=== PATIENT | female | born 1985 | race Caucasian/White ===

== ENCOUNTER 2017-04-06 07:33 | Emergency (ER) | payer MEDICAID ==
[~2017-04-06] VITALS: Ht 160 cm; Wt 61.0 kg
[~2017-04-06 07:33] MED LIST: LISI-170 PO; METO-99 PO; QUET150T PO; QUET200T PO; SERT100T PO
[2017-04-06] MEDS ORDERED: LIDOCAINE 1%, 20ML ONE (07:57)
[2017-04-06] MEDS ORDERED: ACETAMINOPHEN 500 MG TABLET ONE (07:57)
[2017-04-06] MEDS ORDERED: LIDOCAINE 1%, 20ML SQ ONE (08:00)
[2017-04-06] MEDS ORDERED: ACETAMINOPHEN 500 MG TABLET PO ONE (08:00)
[2017-04-06] MEDS ORDERED: ONDANSETRON ODT 4 MG ONE (08:17)
[2017-04-06] MEDS ORDERED: HYDROmorphone 1 MG/ML, 1ML ONE (08:17)
[2017-04-06] MEDS ORDERED: HYDROmorphone 1 MG/ML, 1ML IM ONE (08:30)
[2017-04-06] MEDS ORDERED: ONDANSETRON ODT 4 MG PO ONE (08:30)
[2017-04-06] MEDS ORDERED: CLINDAMYCIN 300 MG CAPSULE PO ONE (09:00)
[2017-04-06] MEDS ORDERED: CLINDAMYCIN 150 MG CAPSULE PO ONE (09:30)
[2017-04-06] MEDS ORDERED: CLINDAMYCIN 300 MG CAPSULE ONE (09:48)
[2017-04-06] MEDS ORDERED: CLINDAMYCIN 150 MG CAPSULE ONE (09:48)
[2017-04-06 09:58] VITALS: BP 114/65
== END 2017-04-06 10:00 | disposition home or self-care (01) ==
LOC: ED 09:35
DX: L03.317 Cellulitis of buttock (principal); L02.31 Cutaneous abscess of buttock
CPT/HCPCS: 10061; 96372; 99284; J1170; J3490; Q0162

== ENCOUNTER 2017-06-01 09:21 | Emergency (ER) | payer MEDICAID ==
[~2017-06-01] VITALS: Ht 160 cm; Wt 65.0 kg
[2017-06-01] MEDS ORDERED: ACETAMINOPHEN 500 MG TABLET ONE (10:35)
[2017-06-01] MEDS ORDERED: LIDOCAINE 1%, 10ML ONE (10:35)
[2017-06-01] MEDS ORDERED: ONDANSETRON ODT 4 MG ONE (10:52)
[2017-06-01] MEDS ORDERED: HYDROmorphone 2 MG/ML, 1ML ONE (10:59)
[2017-06-01] MEDS ORDERED: ONDANSETRON ODT 4 MG PO ONE (11:00)
[2017-06-01] MEDS ORDERED: HYDROmorphone 1 MG/ML, 1ML IM ONE (11:00)
[2017-06-01] MEDS ORDERED: ACETAMINOPHEN 500 MG TABLET PO ONE (11:00)
[2017-06-01] MEDS ORDERED: LIDOCAINE 1%, 20ML SQ ONE (11:00)
[2017-06-01 12:39] VITALS: BP 128/89
== END 2017-06-01 12:42 | disposition home or self-care (01) ==
LOC: ED 12:36
DX: L02.31 Cutaneous abscess of buttock (principal); I10 Essential (primary) hypertension
CPT/HCPCS: 10060; 96372; 99283; J1170; J3490; Q0162

== ENCOUNTER 2017-06-04 07:21 | Emergency (ER) | payer MEDICAID ==
[~2017-06-04] VITALS: Ht 160 cm; Wt 67.7 kg
[2017-06-04 07:22] VITALS: BP 141/92
== END 2017-06-04 08:06 | disposition home or self-care (01) ==
LOC: ED 07:55
DX: L02.31 Cutaneous abscess of buttock (principal); I10 Essential (primary) hypertension
CPT/HCPCS: 99282

== ENCOUNTER 2018-03-05 06:21 | Emergency (ER) | payer MEDICAID ==
[~2018-03-05] VITALS: Ht 160 cm; Wt 64.2 kg
[2018-03-05] MEDS ORDERED: SODIUM CHLORIDE FLUSH 10ML SYR IVF ONE (07:00)
[2018-03-05 07:24] LABS: ALANINE AMINOTRANSFERASE 16 U/L (12-78); ANION GAP 12 mmol/L (5-15); CALCIUM 8.4 mg/dL (8.5-10.1); CHLORIDE 104 mmol/L (98-107); CREATININE 0.89 mg/dL (0.55-1.02)
[2018-03-05 07:28] LABS: ALBUMIN 3.4 g/dL (3.4-5.0); ALKALINE PHOSPHATASE 97 U/L (45-117); BILIRUBIN,TOTAL 0.8 mg/dL (0.2-1.0); TOTAL PROTEIN 8.7 g/dL (6.4-8.2)
[2018-03-05 07:32] LABS: BASOPHILS # (AUTO) 0.05 x10^3/uL (0-0.1); BASOPHILS % (AUTO) 1 % (0-1); EOSINOPHILS # (AUTO) 0.04 x10^3/uL (0-0.4); EOSINOPHILS % (AUTO) 0 % (1-7); LYMPHOCYTES # (AUTO) 1.77 x10^3/uL (1-3.4); LYMPHOCYTES % (AUTO) 18 % (22-44); MD NO; MEAN CORPUSCULAR HEMOGLOBIN 28.2 pg (27.0-34.8); MEAN CORPUSCULAR HGB CONC 33.4 g/dL (32.4-35.8); MEAN CORPUSCULAR VOLUME 84.2 fL (80-100); MEAN PLATELET VOLUME 9.3 fL (7.4-10.4); MONOCYTES # (AUTO) 0.62 x10^3/uL (0.2-0.8); MONOCYTES % (AUTO) 6 % (2-9); NEUTROPHILS # (AUTO) 7.25 x10^3/uL (1.8-6.8); NEUTROPHILS % (AUTO) 75 % (42-75); PLATELET COUNT 266 x10^3/uL (130-400); RED BLOOD COUNT 4.56 x10^6/uL (3.82-5.3); RED CELL DISTRIBUTION WIDTH 14.2 % (9.6-15.2)
[2018-03-05] MEDS ORDERED: HYDROmorphone 2 MG/ML, 1ML ONE (07:58)
[2018-03-05] MEDS ORDERED: VANCOMYCIN PER PHARMACY MC ONE (08:00)
[2018-03-05] MEDS ORDERED: PIPERACILLIN/TAZO/PMX 3.375GM 50 ML IVPB ONE (08:00)
[2018-03-05] MEDS ORDERED: SODIUM CHLORIDE 0.9% 1,000ML IVBOLUS ONE (08:00)
[2018-03-05] MEDS ORDERED: PHARMACOKINETIC CONSULTATION MC ONE (08:00)
[2018-03-05] MEDS ORDERED: HYDROmorphone 1 MG/ML, 1ML IVPush PRN (08:00)
[2018-03-05] MEDS ORDERED: VANCOMYCIN 1,200 MG in SODIUM CHLORIDE 0.9% 250 ML IV ONE (08:30)
[2018-03-05] MEDS ORDERED: PROPOFOL 10 MG/ML, 20ML IVPush ONE (08:30)
[2018-03-05] MEDS ORDERED: PROPOFOL 10 MG/ML, 20ML ONE ×2 (08:53→09:31)
[2018-03-05] MEDS ORDERED: PIPERACILLIN/TAZO/PMX 3.375GM 50 ML ONE (09:59)
[2018-03-05 12:26] VITALS: BP 108/65
== END 2018-03-05 12:30 | disposition home or self-care (01) ==
LOC: ED 12:09
DX: L02.31 Cutaneous abscess of buttock (principal); I10 Essential (primary) hypertension; F41.1 Generalized anxiety disorder
CPT/HCPCS: 10060; 36415; 72193; 80053; 83605; 84703; 85025; 87040; 96365; 96366; 96368; 96375; 99152; 99285; J1170; J2543; J2704; J3370; J7030; J7050

== ENCOUNTER 2018-03-21 06:47 | Emergency (ER) | payer MEDICAID ==
[~2018-03-21] VITALS: Ht 160 cm; Wt 64.0 kg
[2018-03-21] MEDS ORDERED: VANCOMYCIN PER PHARMACY MC ONE (08:00)
[2018-03-21] MEDS ORDERED: PROPOFOL 10 MG/ML, 20ML IVPush ONE (08:30)
[2018-03-21 08:40] LABS: HCG UR SG 1.004 (1.003-1.030)
[2018-03-21] MEDS ORDERED: VANCOMYCIN 1,300 MG in SODIUM CHLORIDE 0.9% 250 ML IV ONE (09:00)
[2018-03-21] MEDS ORDERED: HYDROmorphone 2 MG/ML, 1ML ONE ×2 (09:09→10:11)
[2018-03-21] MEDS ORDERED: PROPOFOL 10 MG/ML, 20ML ONE (09:09)
[2018-03-21 09:12] LABS: BASOPHILS # (AUTO) 0.03 x10^3/uL (0-0.1); BASOPHILS % (AUTO) 0 % (0-1); EOSINOPHILS # (AUTO) 0.08 x10^3/uL (0-0.4); EOSINOPHILS % (AUTO) 1 % (1-7); LYMPHOCYTES # (AUTO) 1.49 x10^3/uL (1-3.4); LYMPHOCYTES % (AUTO) 16 % (22-44); MD NO; MEAN CORPUSCULAR HEMOGLOBIN 28.5 pg (27.0-34.8); MEAN CORPUSCULAR HGB CONC 33.9 g/dL (32.4-35.8); MEAN CORPUSCULAR VOLUME 84.2 fL (80-100); MEAN PLATELET VOLUME 9.5 fL (7.4-10.4); MONOCYTES # (AUTO) 0.65 x10^3/uL (0.2-0.8); MONOCYTES % (AUTO) 7 % (2-9); NEUTROPHILS % (AUTO) 75 % (42-75); PLATELET COUNT 217 x10^3/uL (130-400); RED BLOOD COUNT 4.52 x10^6/uL (3.82-5.3); RED CELL DISTRIBUTION WIDTH 14.6 % (9.6-15.2)
[2018-03-21 09:25] LABS: ALANINE AMINOTRANSFERASE 15 U/L (12-78); ALBUMIN 3.2 g/dL (3.4-5.0); ANION GAP 9 mmol/L (5-15); CALCIUM 8.3 mg/dL (8.5-10.1); CHLORIDE 106 mmol/L (98-107); CREATININE 0.77 mg/dL (0.55-1.02)
[2018-03-21 09:27] LABS: ALKALINE PHOSPHATASE 107 U/L (45-117); BILIRUBIN,TOTAL 0.6 mg/dL (0.2-1.0); TOTAL PROTEIN 8.5 g/dL (6.4-8.2)
[2018-03-21] MEDS ORDERED: LIDOCAINE-MPF 1%, 5ML ONE (09:29)
[2018-03-21] MEDS ORDERED: ETOMIDATE 20 MG/10 ML ONE (09:29)
[2018-03-21] MEDS ORDERED: ETOMIDATE 20 MG/10 ML IVPush ONE ×2 (09:30→10:30)
[2018-03-21] MEDS: HYDROmorphone 1 MG/ML, 1ML IVPush PRN ×2 (09:30→10:15)
[2018-03-21 11:59] VITALS: BP 135/84
[2018-03-21] MEDS ORDERED: BACITRACIN ZINC OINT 500U/GM, 0.9 GM ONE (12:07)
== END 2018-03-21 12:36 | disposition home or self-care (01) ==
LOC: ED 07:21
DX: K13.0 Diseases of lips (principal); L03.116 Cellulitis of left lower limb; F11.10 Opioid abuse, uncomplicated; F15.10 Other stimulant abuse, uncomplicated; F17.210 Nicotine dependence, cigarettes, uncomplicated
CPT/HCPCS: 10060; 36415; 80053; 81025; 85025; 96365; 96366; 96375; 96376; 99152; 99285; J1170; J3370; J7050

== ENCOUNTER 2018-06-22 19:55 | Emergency (ER) | payer MEDICAID ==
[~2018-06-22] VITALS: Ht 160 cm; Wt 64.9 kg
[2018-06-22 20:14] VITALS: BP 138/80
[2018-06-22] MEDS ORDERED: LIDOCAINE-MPF 1%, 5ML INFIL ONE (20:30)
[2018-06-22] MEDS ORDERED: LIDOCAINE-MPF 1%, 5ML ONE (20:44)
--- NOTE | 2018-06-22 20:52 | NUR ---
PATIENT WAS ALL SET UP FOR I&D. PATIENT STATED, "I WANT TO LEAVE. I'LL JUST GO TO [place] THEY GIVE ME A BIG SHOT OF DILAUDID".
--- NOTE | 2018-06-22 20:55 | NUR ---
PATIENT SIGNED [facility].
== END 2018-06-22 20:56 | disposition left against medical advice (07) ==
LOC: ED 20:50
DX: L02.31 Cutaneous abscess of buttock (principal); F41.1 Generalized anxiety disorder; I10 Essential (primary) hypertension; Z72.9 Problem related to lifestyle, unspecified
CPT/HCPCS: 99283

== ENCOUNTER 2019-01-07 05:46 | Emergency (ER) | payer MEDICAID ==
[~2019-01-07] VITALS: Ht 160 cm; Wt 61.0 kg
[2019-01-07 05:49] VITALS: BP 149/86
== END 2019-01-07 06:55 | disposition home or self-care (01) ==
LOC: ED 06:43
DX: L03.114 Cellulitis of left upper limb (principal); L03.116 Cellulitis of left lower limb; L02.416 Cutaneous abscess of left lower limb; L02.414 Cutaneous abscess of left upper limb; F11.10 Opioid abuse, uncomplicated
CPT/HCPCS: 10061; 96372; 99284; S0077; 25605

== ENCOUNTER 2019-01-16 14:46 | Inpatient (IN) | payer MEDICAID ==
[~2019-01-16] VITALS: Ht 160 cm; Wt 73.4 kg
[2019-01-19 06:55] VITALS: BP 145/88
== END 2019-01-19 09:05 | disposition left against medical advice (07) | DRG 602 ==
LOC: ED 15:40 → EDIP 15:41 → OR 15:59 → 4NOR 19:22
PROVIDERS: ADMIT Internal Medicine; ATTEND Internal Medicine
PROC: 0Y9C0ZZ Drainage of Right Upper Leg, Open Approach (ICD-10-PCS; principal; 2019-01-16)
DX: L02.415 Cutaneous abscess of right lower limb (principal); E43 Unspecified severe protein-calorie malnutrition; L02.31 Cutaneous abscess of buttock; F17.213 Nicotine dependence, cigarettes, with withdrawal; L03.115 Cellulitis of right lower limb; Z53.21 Procedure and treatment not carried out due to patient leaving prior to being seen by health care provider; D50.9 Iron deficiency anemia, unspecified; Z68.28 Body mass index [BMI] 28.0-28.9, adult; E87.6 Hypokalemia; F11.10 Opioid abuse, uncomplicated; F15.10 Other stimulant abuse, uncomplicated; F31.9 Bipolar disorder, unspecified; I10 Essential (primary) hypertension; K11.20 Sialoadenitis, unspecified; Z91.19 Patient's noncompliance with other medical treatment and regimen; Z82.49 Family history of ischemic heart disease and other diseases of the circulatory system
CPT/HCPCS: 36415; 80048; 80053; 80202; 82728; 83540; 83550; 83605; 84145; 84466; 85025; 87015; 87040; 87070; 87075; 87102; 87116; 87205; 87206; 96374; G0378; J0690; J1100; J1885; J2250; J2405; J2543; J2704; J3010; J3370; J3480; J0330; J2270; J7050

== ENCOUNTER 2020-02-04 22:09 | Inpatient (IN) | payer MEDICAID ==
[~2020-02-04] VITALS: Ht 160 cm; Wt 74.4 kg
[~2020-02-04 22:09] MED LIST changes: +ACET325T26 PO; +CEFT2FRO2 IV; +HYDR-3237 PO; +IBUP-1221 PO; +METH10TA2 PO; +NICO-486 TD; +POLY17PO5 PO; -QUET150T PO; +QUET150T2 PO
--- NOTE | 2020-02-04 22:45 | NUR ---
Patient presents to ER c/o two abcesses, one to the top of right shoulder and one to the outer lower aspect of right hip. Patient c/o pain with abscesses. Hx of IV drug use. Patient is in NAD. Respirations even and unlabored.
[2020-02-04] MEDS ORDERED: LIDOCAINE-MPF 1%, 5ML INFIL ONE (23:00)
[2020-02-04] MEDS ORDERED: LIDOCAINE-MPF 1%, 5ML ONE ×2 (23:00→23:17)
[2020-02-04] MEDS ORDERED: HYDROmorphone 2 MG/ML, 1ML IM ONE (23:00)
[2020-02-04] MEDS ORDERED: HYDROmorphone 2 MG/ML, 1ML ONE (23:00)
[2020-02-04] MEDS ORDERED: VANCOMYCIN 1,900 MG in SODIUM CHLORIDE 0.9% 250 ML IV ONE (23:45)
[2020-02-05] MEDS ORDERED: CEFTRIAXONE PMX 1GM/50ML 50 ML IV ONE
[2020-02-05] MEDS ORDERED: SODIUM CHLORIDE 0.9% 1,000ML IVBOLUS ONE
[2020-02-05] MEDS ORDERED: CEFTRIAXONE PMX 1GM/50ML 50 ML ONE (00:06)
[2020-02-05 00:28] LABS: BASOPHILS # (AUTO) 0.02 x10^3/uL (0-0.1); BASOPHILS % (AUTO) 0 % (0-1); EOSINOPHILS # (AUTO) 0.13 x10^3/uL (0-0.4); EOSINOPHILS % (AUTO) 2 % (1-7); LYMPHOCYTES # (AUTO) 1.78 x10^3/uL (1-3.4); LYMPHOCYTES % (AUTO) 27 % (22-44); MD NO; MEAN CORPUSCULAR HEMOGLOBIN 26.8 pg (27.0-34.8); MEAN CORPUSCULAR HGB CONC 33.3 g/dL (32.4-35.8); MEAN CORPUSCULAR VOLUME 80.5 fL (80-100); MEAN PLATELET VOLUME 8.5 fL (7.4-10.4); MONOCYTES # (AUTO) 0.53 x10^3/uL (0.2-0.8); MONOCYTES % (AUTO) 8 % (2-9); NEUTROPHILS # (AUTO) 4.11 x10^3/uL (1.8-6.8); NEUTROPHILS % (AUTO) 63 % (42-75); PLATELET COUNT 265 x10^3/uL (130-400); RED BLOOD COUNT 4.49 x10^6/uL (3.82-5.3); RED CELL DISTRIBUTION WIDTH 14.8 % (9.6-15.2)
[2020-02-05 00:38] LABS: ALBUMIN 2.7 g/dL (3.4-5.0); ANION GAP 7 mmol/L (5-15); CALCIUM 8.2 mg/dL (8.5-10.1); CHLORIDE 102 mmol/L (98-107); CREATININE 0.72 mg/dL (0.55-1.02)
[2020-02-05] MEDS ORDERED: OMNIPAQUE 350 MG/ML, 100ML BOTTLE ONE (00:57)
[2020-02-05] MEDS ORDERED: SODIUM CHLORIDE 0.9% 1,000 ML IV SCH (02:43)
[2020-02-05] MEDS ORDERED: HYDROmorphone 1 MG/ML, 1ML INJ ONE (02:53)
[2020-02-05] MEDS ORDERED: HYDROmorphone 2 MG/ML, 1ML IVPush PRN (03:00)
[2020-02-05] MEDS ORDERED: KETOROLAC 30 MG/1 ML IV PRN (03:00)
[2020-02-05] MEDS ORDERED: ONDANSETRON 2MG/ML, 2ML IVPush PRN (03:00)
[2020-02-05] MEDS ORDERED: IBUPROFEN 600 MG TABLET PO PRN (03:00)
[2020-02-05] MEDS ORDERED: DOCUSATE 100 MG CAPSULE PO PRN (03:00)
[2020-02-05] MEDS ORDERED: VANCOMYCIN PER PHARMACY MC PRN ×2 (03:00)
[2020-02-05] MEDS ORDERED: ACETAMINOPHEN 325 MG TABLET PO PRN (03:00)
[2020-02-05] MEDS ORDERED: HYDROmorphone 1 MG/ML, 1ML INJ IM ONE (03:00)
[2020-02-05] MEDS ORDERED: NICOTINE 14MG/24 HR PATCH.TD24 TD ONE (03:00)
[2020-02-05] MEDS ORDERED: MELATONIN 5 MG TABLET PO PRN (03:00)
[2020-02-05 03:10] VITALS: BP 109/63
[2020-02-05] MEDS: PIPERACILLIN/TAZO/PMX 3.375GM 50 ML IV SCH ×2 (03:15→10:02)
[2020-02-05] MEDS ORDERED: PHARMACOKINETIC MONITORING MC PRN (03:30)
[2020-02-05 07:58] VITALS: BP 116/78
[2020-02-05 08:09] LABS: BASOPHILS # (AUTO) 0.05 x10^3/uL (0-0.1); BASOPHILS % (AUTO) 1 % (0-1); EOSINOPHILS # (AUTO) 0.15 x10^3/uL (0-0.4); EOSINOPHILS % (AUTO) 2 % (1-7); LYMPHOCYTES # (AUTO) 1.67 x10^3/uL (1-3.4); LYMPHOCYTES % (AUTO) 23 % (22-44); MD NO; MEAN CORPUSCULAR HEMOGLOBIN 26.1 pg (27.0-34.8); MEAN CORPUSCULAR HGB CONC 32.7 g/dL (32.4-35.8); MEAN CORPUSCULAR VOLUME 79.8 fL (80-100); MONOCYTES # (AUTO) 0.53 x10^3/uL (0.2-0.8); MONOCYTES % (AUTO) 7 % (2-9); NEUTROPHILS # (AUTO) 4.89 x10^3/uL (1.8-6.8); NEUTROPHILS % (AUTO) 67 % (42-75); PLATELET COUNT 219 x10^3/uL (130-400); RED BLOOD COUNT 4.38 x10^6/uL (3.82-5.3); RED CELL DISTRIBUTION WIDTH 14.6 % (9.6-15.2)
[2020-02-05 08:21] LABS: ANION GAP 8 mmol/L (5-15); CALCIUM 7.9 mg/dL (8.5-10.1); CHLORIDE 107 mmol/L (98-107)
[2020-02-05 08:22] LABS: CREATININE 0.73 mg/dL (0.55-1.02)
[2020-02-05] MEDS ORDERED: VANCOMYCIN 1,500 MG in SODIUM CHLORIDE 0.9% 250 ML IV SCH (13:00)
== END 2020-02-05 11:06 | disposition left against medical advice (07) | DRG 603 ==
LOC: ED 23:40 → EDIP 02-05 01:45 → 3N 02-05 03:00
PROVIDERS: ADMIT Hospitalist; ATTEND Hospitalist
DX: L02.413 Cutaneous abscess of right upper limb (principal); L02.415 Cutaneous abscess of right lower limb; L03.115 Cellulitis of right lower limb; D64.9 Anemia, unspecified; E87.6 Hypokalemia; F11.10 Opioid abuse, uncomplicated; F17.210 Nicotine dependence, cigarettes, uncomplicated; F31.9 Bipolar disorder, unspecified; I10 Essential (primary) hypertension; R73.9 Hyperglycemia, unspecified
CPT/HCPCS: 36415; 80048; 82040; 83036; 83605; 83735; 85025; 87040; G0378; J0696; J1170; J2543; J3370; Q9967; J7030; J7050